=== PATIENT | male | born 1980 | race Caucasian/White ===

== ENCOUNTER 2018-03-25 18:01 | Emergency (ER) | payer OTHER ==
[~2018-03-25] VITALS: Ht 172.7 cm; Wt 112.0 kg
[~2018-03-25 18:01] MED LIST: FLEXERIL10 MG PO; LITHIUM; LITHIUM CARBON300 M1 PO; NAPROSYN500 MG PO; NAPROXEN500 MG PO; PREDNISONE10 M1 PO; TESSALON200 MG PO; TRAMADOL HCL50 MG PO; ULTRAM50 MG PO; VENTOLIN HFA18 GM IH
[2018-03-25] MEDS ORDERED: PREDNISONE10 MG PO (20:17)
[2018-03-25] MEDS ORDERED: BENADRYL50 MG PO (20:17)
[2018-03-25] MEDS ORDERED: PEPCID20 MG PO (20:17)
[2018-03-25 20:50] VITALS: BP 140/93
== END 2018-03-25 20:52 | disposition home or self-care (01) ==
LOC: EXP 18:01 → EME 18:01 → EXP 20:52
DX: L30.9 Dermatitis, unspecified (principal); H54.40 Blindness, one eye, unspecified eye; H91.8X2 Other specified hearing loss, left ear; F17.200 Nicotine dependence, unspecified, uncomplicated; Z98.2 Presence of cerebrospinal fluid drainage device; Z86.011 Personal history of benign neoplasm of the brain; Z88.6 Allergy status to analgesic agent; Z88.8 Allergy status to other drugs, medicaments and biological substances
CPT/HCPCS: 99281; 99284; J7512

== ENCOUNTER 2018-04-19 22:57 | Emergency (ER) | payer OTHER ==
[~2018-04-19] VITALS: Ht 172.7 cm; Wt 108.6 kg
[~2018-04-19 22:57] MED LIST changes: +BENADRYL50 MG PO; +PEPCID20 MG PO; +PREDNISONE10 MG PO
[2018-04-19 23:34] LABS: HEMATOCRIT 47.9 % (38.0-50.0); HEMOGLOBIN 15.9 G/DL (12.5-16.6); MCH 28.5 PG (29.0-34.0); MCHC 33.2 G/DL (30.0-36.0); MCV 85.8 FL (86-99); PLATELET COUNT 305 K/uL (156-360); RBC DIS.WIDTH-CV 14.4 % (11.8-14.6); RBC DIS.WIDTH-SD 45.5 % (39-53); RED BLOOD COUNT 5.58 M/uL (4.00-5.50); WHITE BLOOD COUNT 9.5 K/uL (4.1-10.2)
[2018-04-19 23:54] LABS: ALBUMIN 4.3 g/dL (3.2-4.8); CHLORIDE 103 mEq/L (99-109); POTASSIUM 3.7 mEq/L (3.7-5.4); SODIUM 139 mEq/L (136-147)
[2018-04-19 23:54] LABS: APPEARANCE CLEAR ((CLEAR)); BILIRUBIN SMALL; BLOOD NEGATIVE; COLOR AMBER ((YELLOW)); GLUCOSE (STRIP) NEGATIVE; KETONES 5; LEUKOCYTES TRACE; NITRITE NEGATIVE; PROTEIN (STRIP) 30; SPECIFIC GRAVITY 1.036 (1.000-1.030)
[2018-04-19 23:56] LABS: GLUCOSE 144 mg/dL (70-99); TOTAL PROTEIN 6.9 g/dL (6.4-8.3)
[2018-04-19 23:58] LABS: TOTAL BILIRUBIN 0.4 mg/dL (0.0-1.0)
[2018-04-20] LABS: ALKALINE PHOSPHATASE 70 IU/L (3-129); GFR ESTIMATE (CALCULATED) > 59 mL/min/ (58.99-99999)
[2018-04-20 00:01] LABS: UREA NITROGEN (BUN) 20 mg/dL (9-23)
[2018-04-20 00:02] LABS: AST (GOT) 17 IU/L (2-34)
[2018-04-20 00:03] LABS: ALT (GPT) 27 IU/L (3-49); LIPASE 14 U/L (1.0-51.0)
[2018-04-20 00:04] LABS: BACTERIA NONE SEEN /HPF; EPITHELIAL CELLS RARE /HPF; MUCUS 4+ /LPF; UCUL ADDED? YES
[2018-04-20 01:35] VITALS: BP 122/90
== END 2018-04-20 01:41 | disposition home or self-care (01) ==
LOC: EME 22:57
DX: K52.9 Noninfective gastroenteritis and colitis, unspecified (principal); H54.62 Unqualified visual loss, left eye, normal vision right eye; H91.92 Unspecified hearing loss, left ear; G81.94 Hemiplegia, unspecified affecting left nondominant side; F17.200 Nicotine dependence, unspecified, uncomplicated; Z98.2 Presence of cerebrospinal fluid drainage device; Z98.890 Other specified postprocedural states; Z86.011 Personal history of benign neoplasm of the brain; Z88.6 Allergy status to analgesic agent
CPT/HCPCS: 74176; 80053; 81003; 83690; 85027; 87086; 99281; 99284; J2405; J7030